=== PATIENT | male | born 1985 | race Caucasian/White ===

== ENCOUNTER 2016-10-18 09:31 | Emergency (ER) | payer OTHER ==
[~2016-10-18] VITALS: Ht 185.4 cm; Wt 103.4 kg
[~2016-10-18 09:31] MED LIST: CEPHALEXIN500 MG PO
[2016-10-18 09:40] VITALS: BP 151/95
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
--- NOTE | 2016-10-18 10:45 | RADIOLOGY REPORT ---
EXAMINATION: XR RIBS, RIGHT CLINICAL INFORMATION: Pain after trauma. COMPARISON: None TECHNIQUE: 3 views of the right ribs were obtained. FINDINGS: Lungs are well expanded and clear. Cardiomediastinal silhouette has normal size and contour. No pneumothorax or pleural effusion. No evidence of an acute, displaced rib fracture. IMPRESSION: 1. Lungs are normal. 2. No evidence of acute rib injury.
== END 2016-10-18 10:53 ==
LOC: ERH 09:31
DX: S20.211A Contusion of right front wall of thorax, initial encounter (principal); W19.XXXA Unspecified fall, initial encounter; Y92.9 Unspecified place or not applicable; Y93.9 Activity, unspecified
CPT/HCPCS: 71100-RT